=== PATIENT | female | born 1985 | race Caucasian/White ===

== ENCOUNTER 2017-04-04 21:00 | Emergency (ER) | payer OTHER, SELFPAY ==
[2017-04-04 21:17] VITALS: BP 107/67; PULSE 108; RESP 18; TEMP 36.4; O2SAT 98; BMI 24.6
--- NOTE | 2017-04-04 21:33 | HMH.EDURI ---
ED Disposition Clinical Impression: Flu Disposition: Home, Self-Care Condition on Discharge: Good Instructions: Influenza Additional Instructions: fluids and see pcp as needed Prescriptions: Oseltamivir Phosphate [Tamiflu 75mg Capsule] 75 mg PO BID #10 cap Referrals: Jose Younger MD [Primary Care Provider] - - Critical Care Critical Care Time: No Attestation: On , the high probability of a clinically significant, sudden or life threatening deterioration of the following system(s) required my full and direct attention, intervention and personal management. The time I documented below is in addition to time spent performing reported procedures but includes the following listed in this critical care notation. Medical Decision Making - Medical Records Medical records reviewed: Yes: I reviewed the patient's medical records. Vital Signs: 04/04/17 21:17 Temperature 97.6 F Temperature Source Oral Pulse Rate [Left Radial] 108 H Respiratory Rate 18 Blood Pressure [Right Arm] 107/67 Blood Pressure Mean [Right Arm] 80 Blood Pressure Source [Right Arm] Automatic Cuff Blood Pressure Position [Right Arm] Sitting 02 Sat by Pulse Oximetry 98 Oxygen Delivery Method Room Air - Lab Data Lab results reviewed: Yes: I reviewed the patient's lab results. Lab Results 04/04/17 : Influenza Type A Ag Positive A, Influenza Type B Ag Negative, Group A Strep Rapid Negative Orders (Tests/Meds): ORDERS Category Date Time Status Strep Screen Confirmation Stat Micro 04/04/17 Received - Yo Inquiry Pt receiving controlled substance: No URI/Sore Throat HPI - General Chief Complaint: Weakness Stated Complaint: SORE THROUT,COUGH Time Seen by Provider: 04/04/17 21:33 Mode of Arrival: Ambulatory Source of Information: Patient, Medical Record Limitations: No Limitations Description of Symptoms (Recalled from ER Triage Doc. 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 Complaint: fever, sore throat Onset (ago): day(s) Duration: constant Severity: moderate Relieving factors: OTC cold medicine Exacerbating factors: swallowing Description of mucous: clear Context: sick contacts Associated symptoms: fever - Related Data Home Medications Medication Instructions Recorded Confirmed acetaminophen 300 mg-codeine 30 mg 1 tab PO BIDP PRN tab 03/23/17 04/04/17 tablet nebivolol 5 mg tablet 5 mg PO QDAY 03/23/17 04/04/17 venlafaxine ER 150 mg 150 mg PO QDAY 03/23/17 04/04/17 capsule,extended release 24 hr buprenorphine 8 mg-naloxone 2 mg 2 each SUBLINGUAL DAILY each 03/29/17 04/04/17 sublingual film carbamazepine 200 mg tablet 200 mg PO Q12H 03/29/17 04/04/17 Dextroamphetamine/Amphetamine 10 mg PO BID 04/04/17 04/04/17 [Dextroamp-Amphetamin 10 mg Tab] Docusate Sodium [Colace] 100 mg PO QDAY 04/04/17 04/04/17 Gabapentin [Neurontin 800mg Tab] 800 mg PO TID 04/04/17 04/04/17 Polyethylene Glycol 3350 17 g PO QDAY 04/04/17 04/04/17 [Smoothlax] Previous Rx's Medication Instructions Recorded Oseltamivir Phosphate [Tamiflu 75 mg PO BID #10 cap 04/04/17 75mg Capsule] Allergies Allergy/AdvReac Type Severity Reaction Status Date / Time No Known Allergies Allergy Verified 04/04/17 21:34 [facility] History I have reviewed the patient's past medical history: Yes Laterality Cases: Bilateral: Tonsillectomy Other Surgeries: Yes: Other Amputation: No Fractures: No - *Social History Smoking Status: Current every day smoker Tobacco Type: cigarettes # Packs/Day (cigarettes): 1 #Yrs smoked (if former smoker): 12 Alcohol Intake: current Alcohol Intake Frequency:: holidays/special occasions only Substance Use Type: former substance user Occupational Status: employed Housing: apartment Household Members: family - Psychiatric History Expresses thoughts of harming self/othe
--- NOTE | 2017-04-04 21:36 | ED_ITS ---
ED Disposition Clinical Impression: Flu Disposition: Home, Self-Care Condition on Discharge: Good Instructions: Influenza Additional Instructions: fluids and see pcp as needed Prescriptions: Oseltamivir Phosphate [Tamiflu 75mg Capsule] 75 mg PO BID #10 cap Referrals: Jose Younger MD [Primary Care Provider] - - Critical Care Critical Care Time: No Attestation: On , the high probability of a clinically significant, sudden or life threatening deterioration of the following system(s) required my full and direct attention, intervention and personal management. The time I documented below is in addition to time spent performing reported procedures but includes the following listed in this critical care notation. Medical Decision Making - Medical Records Medical records reviewed: Yes: I reviewed the patient's medical records. Vital Signs: 04/04/17 21:17 Temperature 97.6 F Temperature Source Oral Pulse Rate [Left Radial] 108 H Respiratory Rate 18 Blood Pressure [Right Arm] 107/67 Blood Pressure Mean [Right Arm] 80 Blood Pressure Source [Right Arm] Automatic Cuff Blood Pressure Position [Right Arm] Sitting 02 Sat by Pulse Oximetry 98 Oxygen Delivery Method Room Air - Lab Data Lab results reviewed: Yes: I reviewed the patient's lab results. Lab Results 04/04/17 : Influenza Type A Ag Positive A, Influenza Type B Ag Negative, Group A Strep Rapid Negative Orders (Tests/Meds): ORDERS Category Date Time Status Strep Screen Confirmation Stat Micro 04/04/17 Received - Yo Inquiry Pt receiving controlled substance: No URI/Sore Throat HPI - General Chief Complaint: Weakness Stated Complaint: SORE THROUT,COUGH Time Seen by Provider: 04/04/17 21:33 Mode of Arrival: Ambulatory Source of Information: Patient, Medical Record Limitations: No Limitations Description of Symptoms (Recalled from ER Triage Doc. 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 Complaint: fever, sore throat Onset (ago): day(s) Duration: constant Severity: moderate Relieving factors: OTC cold medicine Exacerbating factors: swallowing Description of mucous: clear Context: sick contacts Associated symptoms: fever - Related Data Home Medications Medication Instructions Recorded Confirmed acetaminophen 300 mg-codeine 30 mg 1 tab PO BIDP PRN tab 03/23/17 04/04/17 tablet nebivolol 5 mg tablet 5 mg PO QDAY 03/23/17 04/04/17 venlafaxine ER 150 mg 150 mg PO QDAY 03/23/17 04/04/17 capsule,extended release 24 hr buprenorphine 8 mg-naloxone 2 mg 2 each SUBLINGUAL DAILY each 03/29/17 04/04/17 sublingual film carbamazepine 200 mg tablet 200 mg PO Q12H 03/29/17 04/04/17 Dextroamphetamine/Amphetamine 10 mg PO BID 04/04/17 04/04/17 [Dextroamp-Amphetamin 10 mg Tab] Docusate Sodium [Colace] 100 mg PO QDAY 04/04/17 04/04/17 Gabapentin [Neurontin 800mg Tab] 800 mg PO TID 04/04/17 04/04/17 Polyethylene Glycol 3350 17 g PO QDAY 04/04/17 04/04/17 [Smoothlax] Previous Rx's Medication Instructions Recorded Oseltamivir Phosphate [Tamiflu 75 mg PO BID #10 cap 04/04/17 75mg Capsule]
[2017-04-04 22:02] LABS: Strep Scrn Group A (Rapid) Negative (Negative)
== END 2017-04-04 22:53 | disposition home or self-care (01) ==
PROVIDERS: Emergency Provider Emergency Medicine; Family Provider Emergency Medicine; PCP Emergency Medicine
DX: J10.1 Influenza due to other identified influenza virus with other respiratory manifestations (principal); F17.210 Nicotine dependence, cigarettes, uncomplicated; Z79.899 Other long term (current) drug therapy
CPT/HCPCS: 87275; 87276; 87430; 99283

== ENCOUNTER 2017-04-10 12:49 | Emergency (ER) | payer OTHER, SELFPAY ==
[2017-04-10 12:50] VITALS: BP 118/79; PULSE 96; RESP 18; TEMP 36.9; O2SAT 99; BMI 24.2
[2017-04-10 14:00] LABS: Microscopic, Urine URINE MICROSCOPIC (MICROSCOPIC)
[2017-04-10 14:02] LABS: Appearance,Urine CLEAR (Clear); Bilirubin,Urine Negative (Negative); Blood, Urine Negative (Negative); Color,Urine YELLOW (Yellow); Glucose,Urine (UA) Negative (Negative); Ketones,Urine Negative (Negative); Leukocyte Esterase,Urine Negative (Negative); Nitrate,Urine Negative (Negative); Protein,Urine Negative (Negative); Urobilinogen,Urine 0.2 EU/dl (0.2)
--- NOTE | 2017-04-10 14:22 | HMH.EDGENADL ---
ED Disposition Clinical Impression: Acute viral pharyngitis, Tobacco use disorder, Influenza Disposition: Home, Self-Care Condition on Discharge: Good Prescriptions: Amoxicillin [Amoxicillin 500mg Cap] 500 mg PO TID #30 cap Referrals: Jose Younger MD [Primary Care Provider] - - Critical Care Critical Care Time: No Attestation: On 04/10/17, the high probability of a clinically significant, sudden or life threatening deterioration of the following system(s) required my full and direct attention, intervention and personal management. The time I documented below is in addition to time spent performing reported procedures but includes the following listed in this critical care notation. Medical Decision Making Vital Signs: 04/10/17 12:50 Temperature 98.4 F Temperature Source Oral Pulse Rate [Right Brachial] 96 H Respiratory Rate 18 Blood Pressure [Right Arm] 118/79 Blood Pressure Mean [Right Arm] 92 Blood Pressure Source [Right Arm] Automatic Cuff Blood Pressure Position [Right Arm] Sitting 02 Sat by Pulse Oximetry 99 Oxygen Delivery Method Room Air - Lab Data Lab Results 04/10/17 13:52: Urine Color Yellow, Urine Appearance Clear, Urine pH 8.0, Ur Specific [place] 1.010, Urine Protein Negative, Urine Glucose (UA) Negative, Urine Ketones Negative, Urine Blood Negative, Urine Nitrate Negative, Urine Bilirubin Negative, Urine Urobilinogen 0.2, Ur Leukocyte Esterase Negative Orders (Tests/Meds): ORDERS Category Date Time Status Rapid Strep Scrn Group A [Strep Scrn Group A (Rapid)] Lab 04/10/17 13:30 Received Stat UA [Urinalysis and Microscopic] Stat Lab 04/10/17 13:52 Results Upper Respiratory Panel, PCR Stat Lab 04/10/17 13:30 Received - Yo Inquiry Pt receiving controlled substance: No Yo was queried for this patient: No Medical Decision Making Narrative: The patient did have a negative strep screen test. She has a respiratory panel pending but she is on Tamiflu. She has acute pharyngitis most likely to be viral. She was able to start on antibiotics and follow-up with Dr. Younger in the morning on the final respiratory panel to screen report. General Adult HPI - General Chief complaint: PAIN Stated complaint: sore throat,sweating,fatique Mode of Arrival: Ambulatory Source of Information: Patient Limitations: No Limitations Description of Symptoms (Recalled from ER Triage Doc. by RN): Patient states she has had a sore throat for 3 days - History of Present Illness Onset (ago): day(s) (2 weeks) Severity scale (1-10): 5 Quality: sharp Consistency: intermittent Relieving factors: other (Salt and water.) Exacerbating factors: none (Following) Treatments prior to arrival: other (Tamiflu.) - Related Data Home Medications Medication Instructions Recorded Confirmed venlafaxine ER 150 mg 150 mg PO QDAY 03/23/17 04/10/17 capsule,extended release 24 hr buprenorphine 8 mg-naloxone 2 mg 2 each SUBLINGUAL DAILY each 03/29/17 04/10/17 sublingual film Topiramate [Topamax] 25 mg PO DAILY 04/10/17 04/10/17 carBAMazepine [Tegretol] 200 mg PO DAILY 04/10/17 04/10/17 Previous Rx's Medication Instructions Recorded Amoxicillin [Amoxicillin 500mg 500 mg PO TID #30 cap 04/10/17 Cap] Allergies Allergy/AdvReac Type Severity Reaction Status Date / Time No Known Allergies Allergy Verified 04/04/17 21:34 [facility] History I have reviewed the patient's past medical history: Yes Medical History: Denies:: Cancer, Diabetes Mellitus Type 1, Diabetes Mellitus Type 2, MRSA Laterality Cases: Bilateral: Tonsillectomy Other Surgeries: Yes: Other Amputation: No Fractures: No - *Social History Educational Level: Attended High School Smoking Status: Current every day smoker Tobacco Type: cigarettes # Packs/Day (cigarettes): 1 #Yrs smoked (if former smoker): 12 Alcohol Intake: current Alcohol Intake Frequency:: holidays/special occasions only
--- NOTE | 2017-04-10 14:25 | ED_ITS ---
ED Disposition Clinical Impression: Acute viral pharyngitis, Tobacco use disorder, Influenza Disposition: Home, Self-Care Condition on Discharge: Good Prescriptions: Amoxicillin [Amoxicillin 500mg Cap] 500 mg PO TID #30 cap Referrals: Jose Younger MD [Primary Care Provider] - - Critical Care Critical Care Time: No Attestation: On 04/10/17, the high probability of a clinically significant, sudden or life threatening deterioration of the following system(s) required my full and direct attention, intervention and personal management. The time I documented below is in addition to time spent performing reported procedures but includes the following listed in this critical care notation. Medical Decision Making Vital Signs: 04/10/17 12:50 Temperature 98.4 F Temperature Source Oral Pulse Rate [Right Brachial] 96 H Respiratory Rate 18 Blood Pressure [Right Arm] 118/79 Blood Pressure Mean [Right Arm] 92 Blood Pressure Source [Right Arm] Automatic Cuff Blood Pressure Position [Right Arm] Sitting 02 Sat by Pulse Oximetry 99 Oxygen Delivery Method Room Air - Lab Data Lab Results 04/10/17 13:52: Urine Color Yellow, Urine Appearance Clear, Urine pH 8.0, Ur Specific [place] 1.010, Urine Protein Negative, Urine Glucose (UA) Negative, Urine Ketones Negative, Urine Blood Negative, Urine Nitrate Negative, Urine Bilirubin Negative, Urine Urobilinogen 0.2, Ur Leukocyte Esterase Negative Orders (Tests/Meds): ORDERS Category Date Time Status Rapid Strep Scrn Group A [Strep Scrn Group A (Rapid)] Lab 04/10/17 13:30 Received Stat UA [Urinalysis and Microscopic] Stat Lab 04/10/17 13:52 Results Upper Respiratory Panel, PCR Stat Lab 04/10/17 13:30 Received - Yo Inquiry Pt receiving controlled substance: No Yo was queried for this patient: No Medical Decision Making Narrative: The patient did have a negative strep screen test. She has a respiratory panel pending but she is on Tamiflu. She has acute pharyngitis most likely to be viral. She was able to start on antibiotics and follow-up with Dr. Younger in the morning on the final respiratory panel to screen report. General Adult HPI - General Chief complaint: PAIN Stated complaint: sore throat,sweating,fatique Mode of Arrival: Ambulatory Source of Information: Patient Limitations: No Limitations Description of Symptoms (Recalled from ER Triage Doc. by RN): Patient states she has had a sore throat for 3 days - History of Present Illness Onset (ago): day(s) (2 weeks) Severity scale (1-10): 5 Quality: sharp Consistency: intermittent Relieving factors: other (Salt and water.) Exacerbating factors: none (Following) Treatments prior to arrival: other (Tamiflu.) - Related Data Home Medications Medication Instructions Recorded Confirmed venlafaxine ER 150 mg 150 mg PO QDAY 03/23/17 04/10/17 capsule,extended release 24 hr buprenorphine 8 mg-naloxone 2 mg 2 each SUBLINGUAL DAILY each 03/29/17 04/10/17 sublingual film Topiramate [Topamax] 25 mg PO DAILY 04/10/17 04/10/17 carBAMazepine [Tegretol] 200 mg PO DAILY 04/10/17 04/10/17 Previous Rx's Medication Instructions Recorded Amoxicillin [Amoxicillin 500mg 500 mg PO TID #30 cap 04/10/17 Cap] A
[2017-04-10 14:26] LABS: Strep Scrn Group A (Rapid) Negative (Negative)
[2017-04-10 14:36] LABS: Bacteria,Urine Trace /lpf; Squamous Epithelial Cell,Urine Occasional #/hpf (0-5); WBC,Urine Occasional #/hpf (0-3)
[2017-04-10 14:45] VITALS: BP 114/72; RESP 18; TEMP 36.7; O2SAT 99
== END 2017-04-10 14:45 | disposition home or self-care (01) ==
PROVIDERS: Emergency Provider Emergency Medicine; Family Provider Emergency Medicine; PCP Emergency Medicine
DX: J02.8 Acute pharyngitis due to other specified organisms (principal); J11.1 Influenza due to unidentified influenza virus with other respiratory manifestations; F17.210 Nicotine dependence, cigarettes, uncomplicated; Z79.899 Other long term (current) drug therapy
CPT/HCPCS: 81001; 87430; 99284

== ENCOUNTER → 2017-04-20 10:24 | Outpatient (CLI) | payer OTHER, SELFPAY ==
--- NOTE | 2017-04-20 10:27 | XR_ITS ---
XR knee LT 4V HISTORY: ITS.REASON: left knee pain ORDERING PHYSICIAN: Carlitos Lucero MD PATIENT AGE: 31 years COMPARISON: None FINDINGS: Weightbearing views are performed along with a Olivares view and sunrise view of the patella No fracture or dislocation. No lytic or blastic change. Normal mineralization. No significant arthritic changes evident. Nonspecific soft tissue calcification is present involving the medial aspect of the knee and could be due to small phlebolith No other significant findings IMPRESSION: Negative left knee
== END ==
PROVIDERS: PCP Emergency Medicine; Visit Provider Orthopaedic Surgery
DX: M25.562 Pain in left knee (principal)
CPT/HCPCS: 73564

== ENCOUNTER → 2017-05-03 09:39 | Outpatient (CLI) | payer OTHER, SELFPAY ==
--- NOTE | 2017-05-03 09:40 | MR_ITS ---
MR knee LT wo con HISTORY: Left knee pain, running injury, recurrent dislocation of the knee ORDERING PHYSICIAN: Carlitos Lucero MD PATIENT AGE: 31 years COMPARISON: 04/20/2017 radiograph TECHNIQUE: Standard multiplanar multiecho sequences are performed without contrast. FINDINGS: There is thickening of the anterior cruciate ligament with ill definition in its mid aspect cyst with severe sprain or partial tear. ACL course is as expected the PCL is intact. The collateral ligaments, patellar tendon, and quadriceps tendon are intact. There is an oblique tear involving the posterior horn of the medial meniscus with the tear exiting inferiorly at the tibial surface and along the posterior surface. This tear is nondisplaced. The lateral meniscus has an unremarkable appearance. The patellar cartilage is well preserved. The patellofemoral ligaments appear intact with no evidence of retinacular tear. There is some minimal lateral translation of the patella and there is shallow trochlear groove. No evidence of edema of the patella. There is a small knee joint effusion. IMPRESSION: 1. Oblique nondisplaced tear involves posterior horn of the lateral meniscus 2. Suspect at least partial tear of the ACL versus severe sprain 3. Shallow trochlear groove with minimal lateral subluxation of the patella 4. Knee joint effusion
== END ==
PROVIDERS: Family Provider Emergency Medicine; PCP Emergency Medicine; Visit Provider Orthopaedic Surgery
DX: M25.562 Pain in left knee (principal)
CPT/HCPCS: 73721

== ENCOUNTER → 2017-06-27 13:32 | Outpatient (CLI) | payer OTHER, SELFPAY ==
--- NOTE | 2017-06-27 13:35 | XR_ITS ---
XR foot wt bearing RT 3V COMPARISON: Left foot same date HISTORY: No history provided TECHNIQUE: AP lateral and oblique weightbearing views FINDINGS: The tarsal bones metatarsals and phalanges appear intact with no evidence of recent or old fracture. There is minimal soft tissue swelling over the first metatarsal head suggesting possibly early bunion formation. The plantar arch is normal. There is a moderate-sized os trigonum noted. There is a small bone fragment with smooth borders dorsal aspect of the naviculocuneiform articulation. IMPRESSION: Essentially negative right foot no question very minimal or early bunion
--- NOTE | 2017-06-27 13:35 | XR_ITS ---
XR foot wt bearing LT 3V COMPARISON: Right foot same date HISTORY: No history provided TECHNIQUE: AP lateral and oblique weightbearing views FINDINGS: The tarsal bones metatarsals and phalanges appear intact with no evidence of recent or old fracture. The plantar arch is normal. The soft tissues are normal. IMPRESSION: Negative left foot.
== END ==
PROVIDERS: Visit Provider Podiatrist
DX: M79.671 Pain in right foot (principal); M79.672 Pain in left foot
CPT/HCPCS: 73630

== ENCOUNTER 2017-06-29 09:00 | Outpatient (RCR) | payer OTHER, SELFPAY ==
--- NOTE | 2017-05-17 11:40 | HMH.PTOPEV ---
Rehab Outpatient Evaluation Rehab OP Evaluation Start: 05/17/17 11:30 Freq: Status: Active Protocol: Document 05/17/17 11:30 JENNIFER (Rec: 05/17/17 11:39 JENNIFER [id number]) Electronically Signed By Dimitrios Walls, PT 05/17/17 11:30 Outpatient Therapy Subjective History Subjective History Pt reports injury to L knee on 12/26/16 when she fell while running on gravel. MRI of L knee has revealed L ACL partial tear and L lateral meniscus tear. Pt reports global left knee pain and instability since initial injury. Chief Complaint Pain Stiff Swelling Gives out/Unstable Symptom Type Ache Throb Sharp Dull Symptoms Relieved By Rest/Positioning Symptoms Aggravated By Physical Activity Twisting Walking Prior Functional Limitations None Current Functional Limitations Squatting Recreation Activity Walking Stairs Symptom Description Constant but Variable Level of pain today (0-10) 4 Pain scale - at its best (0-10) 3 Pain scale - at its worst (0-10) 8 Hip/Knee Eval Gait Observation General Gait Pattern Observation Antalgic Gait Assistive Device Assistive Devices Straight Cane Palpation Tenderness left Knee Palpation Finding Tenderness Knee Palpation Overall Comment medial and lateral jt line, popiteal space (lateral) MMT right Hip Strength Reason Not Measured WFL Knee Strength Reason Not Measured WFL left Hip Flexion Strength Grade 5 Normal Hip Abduction Strength Grade 4- Good- Hip Adduction Strength Grade 4- Good- Hip Extension Strength Grade 4- Good- Hip External Rotation Strength Grade 4- Good- Hip Internal Rotation Strength Grade 4- Good- Knee Extension Strength Grade 4 Good Knee Flexion Strength Grade 4 Good ROM right Knee Flexion Active Range of Motion ( 0-150 degrees) left Knee Extension Active Range of Motion ( +5 degrees) Knee Flexion Active Range of Motion ( 5-135 degrees) Effusion joint effusion knee exam standard left Mid - Patellar Circumerential Measure ( 33 cm)
--- NOTE | 2017-06-23 13:49 | HMH.RHREAS ---
Rehab Reassessment Rehab OP Re-assessment Start: 06/23/17 13:39 Freq: Status: Active Protocol: Document 06/23/17 13:39 AMANDABERNICE (Rec: 06/23/17 13:48 AMANDABERNICE [id number]) Electronically Signed By Dimitrios Walls, PT 06/23/17 13:39 Rehab Re-assessment Subjective Subjective Pt reports 1/10 L knee pain at rest on VAS, and 8-9/10 L knee pain with episodes of ' buckling', and feels 60% better since I Eval Objective Objective Notes AROM: 3-142 L KNEE FLX MMT: L KNEE FLX 4+/5, L KNEE EXT 4+-5/5, L HIP FLX 4+/5, L HIP EXT/ADD/ABD 4-4+/5 TTP: L KNEE MEDIAL JT LINE 1/4 Assessment Progress Assessment Progressing as Expected Assessment Notes PT W/IMPROVED L LE STRENGTH, TTP, AND ROM Patient goals met STG'S 10/05 Goals Not Met STG'S 07/06 Plan Plan Pt to continue w/skilled PT to make further improvements with ROM, strength, and TTP Frequency of Therapy 1-2x/wk Duration of therapy 2-4wks Time and Billing Re-Eval Time 15 Re-Eval Billing Units 1 PHYSICIAN CERTIFICATION: I certify the specified therapy services for Estrella Almeida are required, authorized, and reviewed every 30 days.
== END 2017-06-29 09:01 | disposition home or self-care (01) ==
LOC: PT 09:00
PROVIDERS: Family Provider Emergency Medicine; PCP Emergency Medicine; Visit Provider Orthopaedic Surgery
DX: S83.512A Sprain of anterior cruciate ligament of left knee, initial encounter (principal); S83.242A Other tear of medial meniscus, current injury, left knee, initial encounter
CPT/HCPCS: 97010; 97014; 97016; 97110; 97164; G0283

== ENCOUNTER → 2017-07-10 13:21 | Outpatient (CLI) | payer OTHER, SELFPAY ==
[2017-07-10 13:48] LABS: Basophils # 0.1 K/mm3 (0-0.2); Basophils % 0.6 % (0.1-2.0); Eosinophils # 0.7 K/mm3 (0.0-0.4); Eosinophils % 7.7 % (0.1-12.0); Hematocrit 42.9 % (37.0-47.0); Hemoglobin 13.4 g/dL (12.2-16.2); Lymphocytes # 3.6 K/mm3 (0.7-4.5); Lymphocytes % 38.5 K/mm3 (10-50); Mean Corpuscular HGB Conc 31.1 g/dL (31.8-35.4); Mean Corpuscular Hemoglobin 26.7 pg (27.0-31.2); Mean Corpuscular Volume 85.7 fl (81-99); Mean Platelet Volume 8.2 fl (7.4-10.4); Monocytes # 0.4 K/mm3 (0.1-1.0); Monocytes % 4.2 % (1.7-9.3); Neutrophils # 4.6 K/mm3 (1.8-7.8); Neutrophils % 48.9 % (37.0-80.0); Platelet Count 251 K/mm3 (142-424); Red Cell Distribution Width 12.9 % (11.5-17.5); White Blood Count 9.4 K/mm3 (4.8-10.8)
[2017-07-10 14:45] LABS: Alanine Aminotransferase 67 U/L (12-78); Albumin Level 3.5 gm/dL (3.4-5.0); Alkaline Phosphatase 80 U/L (46-116); Aspartate Amino Transferase 44 U/L (15-37); Bilirubin,Total 0.3 mg/dL (0.2-1.0); Blood Urea Nitrogen 10 mg/dL (7-18); Calcium 8.8 mg/dL (8.5-10.1); Carbon Dioxide 29 mmol/L (21.0-32.0); Chloride 103 mmol/L (98-107); Creatinine,Serum 0.62 mg/dL (0.55-1.02); Estimated Glomerular Filt Rate 111 ml/min (>60); GFR (African American) 134 ML/MIN (>60); Globulin 3.5 gm/dl (1.3-3.2); Glucose 87 mg/dL (74-106); Sodium 139 mmol/L (136-145); Thyroid Stimulating Hormone 2.24 uIU/ml (0.358-3.740)
== END ==
PROVIDERS: PCP Emergency Medicine; Visit Provider Psychiatry & Neurology Psychiatry
DX: F33.0 Major depressive disorder, recurrent, mild (principal)
CPT/HCPCS: 36415; 80053; 84443; 85025

== ENCOUNTER → 2017-07-22 11:10 | Outpatient (CLI) | payer OTHER, SELFPAY ==
--- NOTE | 2017-07-22 11:27 | XR_ITS ---
XR chest 2V COMPARISON: None HISTORY: Smoking history TECHNIQUE: PA and lateral chest FINDINGS: The lung marte are well expanded and appear clear of infiltrate. The cardiac silhouette and vascularity are normal and is no pleural fluid. There is moderate diffuse dextroscoliotic curvature of the thoracic spine measuring 25 degrees. IMPRESSION: Nonacute chest findings
[2017-07-22 12:08] LABS: Anion Gap 13.1 mEq/L (5-15); Blood Urea Nitrogen 10 mg/dL (7-18); Carbon Dioxide 26 mmol/L (21.0-32.0); Chloride 105 mmol/L (98-107); Creatinine,Serum 0.67 mg/dL (0.55-1.02); Estimated Glomerular Filt Rate 101 ml/min (>60); GFR (African American) 123 ML/MIN (>60); Glucose 79 mg/dL (74-106); Potassium 4.1 mmoL/L (3.5-5.1); Sodium 140 mmol/L (136-145)
[2017-07-22 12:09] LABS: HCG,Quantitative 0 mIU/mL
[2017-07-22 12:13] LABS: Basophils # 0.1 K/mm3 (0-0.2); Basophils % 0.6 % (0.1-2.0); Eosinophils # 0.5 K/mm3 (0.0-0.4); Eosinophils % 6.9 % (0.1-12.0); Hematocrit 40.6 % (37.0-47.0); Hemoglobin 12.9 g/dL (12.2-16.2); Lymphocytes # 2.9 K/mm3 (0.7-4.5); Lymphocytes % 38.1 K/mm3 (10-50); Mean Corpuscular HGB Conc 31.8 g/dL (31.8-35.4); Mean Corpuscular Hemoglobin 26.7 pg (27.0-31.2); Mean Corpuscular Volume 83.8 fl (81-99); Mean Platelet Volume 7.8 fl (7.4-10.4); Monocytes # 0.4 K/mm3 (0.1-1.0); Monocytes % 4.9 % (1.7-9.3); Neutrophils # 3.8 K/mm3 (1.8-7.8); Neutrophils % 49.4 % (37.0-80.0); Platelet Count 294 K/mm3 (142-424); Red Blood Count 4.84 M/mm3 (4.20-5.40); Red Cell Distribution Width 12.6 % (11.5-17.5); White Blood Count 7.7 K/mm3 (4.8-10.8)
== END ==
PROVIDERS: Visit Provider Orthopaedic Surgery
DX: Z01.818 Encounter for other preprocedural examination (principal); S83.512D Sprain of anterior cruciate ligament of left knee, subsequent encounter; S83.282D Other tear of lateral meniscus, current injury, left knee, subsequent encounter; M25.562 Pain in left knee; G89.29 Other chronic pain
CPT/HCPCS: 36415; 71046; 80048; 84702; 85025

== ENCOUNTER 2017-09-06 14:30 | Outpatient (RCR) | payer OTHER, SELFPAY | END 2017-09-06 14:31 | disposition home or self-care (01) | LOC: PT 14:30 | PROVIDERS: Family Provider Emergency Medicine; PCP Emergency Medicine; Visit Provider Orthopaedic Surgery | DX: S83.512D Sprain of anterior cruciate ligament of left knee, subsequent encounter (principal); S83.242D Other tear of medial meniscus, current injury, left knee, subsequent encounter | CPT/HCPCS: 97014; 97016; 97110; 97112; 97116; 97140; 97163; 97164; G0283 ==

== ENCOUNTER → 2017-10-19 10:54 | Outpatient (CLI) | payer OTHER, SELFPAY ==
--- NOTE | 2017-10-19 10:57 | XR_ITS ---
XR knee LT 2V Ordering Physician: Carlitos Lucero MD Patient Age: 32 years: Female HISTORY: ITS.REASON: LEFT knee Meniscal repair. ACL tear TECHNIQUE: 3 views the left knee Plain films of the left knee 04/20/2017COMPARISON : FINDINGS Joint space maintained. . Normal relationships at the knee on this view. Joint effusion persists. The patient has had ACL repair. Small metallic fixation elements overlying the lateral aspect of the lateral femoral condyle base. Also a metallic fixation point seen at the inferior aspect of the tibial tunnel, at the anterior tibia just medial to the tibial tubercle. . Also on Lateral film is a tiny treva of density or calcification projected over the anterior joint space questionable doubtful significance but noted. IMPRESSION: Interval ACL repair.. Joint effusion. Other minor observations in text
== END ==
PROVIDERS: PCP Emergency Medicine; Visit Provider Orthopaedic Surgery
DX: Z47.89 Encounter for other orthopedic aftercare (principal)
CPT/HCPCS: 73560

== ENCOUNTER 2017-12-16 10:00 | Outpatient (RCR) | payer OTHER, SELFPAY ==
--- NOTE | 2017-12-01 13:51 | HMH.PTOPEV ---
PT Outpatient Evaluation Rehab PT Outpatient Evaluation Start: 12/01/17 13:40 Freq: Status: Active Protocol: Document 12/01/17 13:41 TERRA (Rec: 12/01/17 13:51 TERRA [id number]) Electronically Signed By Srinivas Sampson, PT 12/01/17 13:41 Outpatient Therapy Subjective History Subjective History Patient is a 32 year old female presenting to outpatient PT with reports of L knee pain S/P L ACL reconstruction and medial meniscus repair on 08/01/17. Initial injury occurred after a fall while running 12/2016. She has had 2 previous episodes of PT, one prior to surgery and the second for 1 month after surgery. Pt continues to demonstrate slight lack of extension ROM and hip/quad musculature deficits. Chief Complaint Pain Clicks Swelling Gives out/Unstable Symptom Type Ache Symptoms Relieved By Rest/Positioning Ice OTC Meds Symptoms Aggravated By Standing Physical Activity Walking Lifting Prior Functional Limitations None Current Functional Limitations Lifting Housework Standing Squatting Recreation Activity Walking Stairs Symptom Description Intermittent Level of pain today (0-10) 0 Pain scale - at its best (0-10) 0 Pain scale - at its worst (0-10) 7 Hip/Knee Eval Gait Observation General Gait Pattern Observation Antalgic Gait Palpation Tenderness left Knee Palpation Finding Tenderness Knee Palpation Overall Comment medial joint line. MMT right Hip Strength Reason Not Measured WFL Knee Strength Reason Not Measured WFL left Hip Flexion Strength Grade 4 Good Hip Abduction Strength Grade 4- Good- Hip Extension Strength Grade 4 Good Hip External Rotation Strength Grade 4- Good- Hip Internal Rotation Strength Grade 4- Good- Knee Extension Strength Grade 4- Good- Knee Flexion Strength Grade 4 Good ROM right Hip ROM Reason Not Measured
== END 2017-12-16 10:01 | disposition home or self-care (01) ==
LOC: PT 10:00
PROVIDERS: Family Provider Emergency Medicine; PCP Emergency Medicine; Visit Provider Orthopaedic Surgery
DX: S83.242A Other tear of medial meniscus, current injury, left knee, initial encounter (principal)
CPT/HCPCS: 97010; 97014; 97110; 97163; G0283

== ENCOUNTER → 2017-12-16 16:33 | Outpatient (REF) | payer OTHER, SELFPAY ==
[2017-12-16 17:11] LABS: Alanine Aminotransferase 36 U/L (12-78); Albumin Level 3.8 gm/dL (3.4-5.0); Albumin/Globulin Ratio 1.1 (1.1-1.8); Alkaline Phosphatase 85 U/L (46-116); Aspartate Amino Transferase 32 U/L (15-37); Bilirubin,Total 0.2 mg/dL (0.2-1.0); Blood Urea Nitrogen 7 mg/dL (7-18); Carbon Dioxide 29 mmol/L (21.0-32.0); Chloride 108 mmol/L (98-107); Creatinine,Serum 0.79 mg/dL (0.55-1.02); Estimated Glomerular Filt Rate 83 ml/min (>60); GFR (African American) 101 ML/MIN (>60); Globulin 3.4 gm/dl (1.3-3.2); Glucose 81 mg/dL (74-106); Sodium 145 mmol/L (136-145); T4 (Thyroxine) 5.7 ug/dl (4.7-13.3); Thyroid Stimulating Hormone 1.32 uIU/ml (0.358-3.740); Total Protein,Serum 7.2 gm/dL (6.4-8.2)
[2017-12-16 18:45] LABS: Erythrocyte Sedimentation Rate 38 mm/hr (0-20)
[2017-12-16 18:50] LABS: Basophils # 0.1 K/mm3 (0-0.2); Basophils % 0.7 % (0.1-2.0); Eosinophils # 0.5 K/mm3 (0.0-0.4); Eosinophils % 5.2 % (0.1-12.0); Hematocrit 42.2 % (37.0-47.0); Hemoglobin 12.9 g/dL (12.2-16.2); Lymphocytes # 4.1 K/mm3 (0.7-4.5); Lymphocytes % 45.2 K/mm3 (10-50); Mean Corpuscular HGB Conc 30.7 g/dL (31.8-35.4); Mean Corpuscular Hemoglobin 26.4 pg (27.0-31.2); Mean Platelet Volume 8.4 fl (7.4-10.4); Monocytes # 0.4 K/mm3 (0.1-1.0); Monocytes % 4.6 % (1.7-9.3); Neutrophils % 44.3 % (37.0-80.0); Platelet Count 281 K/mm3 (142-424); Red Blood Count 4.91 M/mm3 (4.20-5.40); Red Cell Distribution Width 13.4 % (11.5-17.5); White Blood Count 9.1 K/mm3 (4.8-10.8)
[2017-12-19 12:57] LABS: Vitamin D 25 Hydroxy 27.5 ng/mL (30.0-100.0)
== END ==
LOC: LAB 16:33
PROVIDERS: Visit Provider Emergency Medicine
DX: R53.83 Other fatigue (principal)
CPT/HCPCS: 80053; 82652; 84436; 84443; 85025; 85651

== ENCOUNTER → 2017-12-19 12:14 | Outpatient (CLI) | payer OTHER, SELFPAY | PROVIDERS: Visit Provider Emergency Medicine | DX: R10.9 Unspecified abdominal pain (principal) ==

== ENCOUNTER → 2018-04-20 15:38 | Outpatient (CLI) | payer OTHER, SELFPAY ==
--- NOTE | 2018-04-20 15:45 | XR_ITS ---
XR chest 2V HISTORY: Cough, smoker ITS.REASON: Smoker, f/h lung CA ORDERING PHYSICIAN: CECILIA Guzman PATIENT AGE: 32 years COMPARISON: 07/22/2017 FINDINGS: The cardiomediastinal silhouette and pulmonary vascularity are within normal limits. The lungs are clear without infiltrates, suspicious nodules, or pleural effusions. Mild dextroscoliosis of lower thoracic spine. IMPRESSION: No change with no acute finding
== END ==
PROVIDERS: PCP Physician Assistant; Visit Provider Physician Assistant
DX: Z80.1 Family history of malignant neoplasm of trachea, bronchus and lung (principal); Z72.0 Tobacco use
CPT/HCPCS: 71046

== ENCOUNTER → 2018-04-27 14:09 | Outpatient (CLI) | payer OTHER, SELFPAY | PROVIDERS: PCP Physician Assistant; Visit Provider Physician Assistant | DX: Z72.0 Tobacco use (principal) | CPT/HCPCS: 94060; 94640 ==

== ENCOUNTER → 2019-01-24 13:41 | Outpatient (CLI) | payer OTHER, SELFPAY ==
--- NOTE | 2019-01-24 13:53 | XR_ITS ---
PROCEDURE: XR SHOULDER RT MIN 2V CLINICAL INDICATION: right shoulder pain COMPARISON: No exams were available for comparison FINDINGS: No fracture, dislocation, lytic change, or blastic change evident. No significant degenerative change IMPRESSION: No acute findings. Dictated by: Sp Lindo MD 01/24/2019 14:11 Electronically signed by Sp Lindo MD in [place] 01/24/2019 14:11
== END ==
PROVIDERS: PCP Emergency Medicine; Visit Provider Orthopaedic Surgery
DX: M25.511 Pain in right shoulder (principal)
CPT/HCPCS: 73030

== ENCOUNTER → 2019-08-29 18:20 | Outpatient (CLI) | payer OTHER, SELFPAY ==
[2019-08-29 19:32] LABS: Basophils # 0.1 K/mm3 (0-0.2); Basophils % 0.8 % (0.1-2.0); Eosinophils # 0.6 K/mm3 (0.0-0.4); Eosinophils % 4.7 % (0.1-12.0); Hematocrit 43.6 % (37.0-47.0); Lymphocytes # 3.8 K/mm3 (0.7-4.5); Lymphocytes % 31.2 % (10-50); Mean Corpuscular HGB Conc 32.2 g/dL (31.8-35.4); Mean Corpuscular Hemoglobin 27.8 pg (27.0-31.2); Mean Corpuscular Volume 86.4 fl (81-99); Mean Platelet Volume 8.7 fl (7.4-10.4); Monocytes # 0.6 K/mm3 (0.1-1.0); Monocytes % 4.6 % (1.7-9.3); Neutrophils # 7.2 K/mm3 (1.8-7.8); Neutrophils % 58.8 % (37.0-80.0); Platelet Count 338 K/mm3 (142-424); Red Blood Count 5.05 M/mm3 (4.20-5.40); Red Cell Distribution Width 13.8 % (11.5-17.5); White Blood Count 12.3 K/mm3 (4.8-10.8)
[2019-08-29 20:40] LABS: Chloride 105 mmol/L (98-107); Potassium 4.1 mmoL/L (3.5-5.1); Sodium 139 mmol/L (136-145)
[2019-08-29 20:42] LABS: Alanine Aminotransferase 34 U/L (12-78); Alkaline Phosphatase 75 U/L (38-126); Aspartate Amino Transferase 46 U/L (14-36); Bilirubin,Total 0.8 mg/dl (0.2-1.3); Blood Urea Nitrogen 10 mg/dl (7-17); Estimated Glomerular Filt Rate 95 ml/min (>60); GFR (African American) 115 ML/MIN (>60)
[2019-08-29 20:43] LABS: Albumin Level 4.3 g/dl (3.5-5.0); Albumin/Globulin Ratio 1.4 (1.1-1.8); Anion Gap 12.1 mEq/L (5-15); Calcium 9.4 mg/dl (8.4-10.2); Carbon Dioxide 26 mmol/L (22.0-30.0); Cholesterol 176 mg/dl (140-200); Glucose 106 mg/dl (74-100); HDL Cholesterol 44 mg/dl (40-60); Total Protein,Serum 7.3 g/dl (6.3-8.2); Triglycerides 198 mg/dl (30-150); VLDL Cholesterol 40 mg/dL (0-40)
[2019-08-29 20:59] LABS: T4 (Thyroxine) 8.1 ug/dl (5.53-11.0)
[2019-08-29 21:38] LABS: Hemoglobin A1C 5.3 % (4.0-6.0)
[2019-08-29 22:03] LABS: Thyroid Stimulating Hormone 3.26 uIU/mL (0.465-4.68)
[2019-08-31 12:05] LABS: Vitamin D 25 Hydroxy 22.7 ng/mL (30.0-100.0)
== END ==
PROVIDERS: Visit Provider Nurse Practitioner Family
DX: Z01.89 Encounter for other specified special examinations (principal); M54.9 Dorsalgia, unspecified; G89.29 Other chronic pain; Z79.899 Other long term (current) drug therapy
CPT/HCPCS: 80053; 80061; 82652; 83036; 84436; 84443; 85025

== ENCOUNTER 2021-10-02 13:10 | Outpatient (CLI) | payer OTHER, SELFPAY ==
[2021-10-02 13:13] VITALS: BP 118/80; PULSE 73; RESP 18; TEMP 36.7; O2SAT 99; BMI 25.4
[2021-10-02 13:30] LABS: Microscopic, Urine URINE MICROSCOPIC (MICROSCOPIC)
[2021-10-02 13:37] LABS: Appearance,Urine SL CLOUDY (Clear); Bilirubin,Urine Negative (Negative); Blood, Urine Negative (Negative); Color,Urine YELLOW (Yellow); Glucose,Urine (UA) Negative (Negative); Ketones,Urine Negative (Negative); Leukocyte Esterase,Urine Negative (Negative); Nitrate,Urine Negative (Negative); PH,Urine 6.5 (5.0-8.5); Protein,Urine TRACE (Negative); Specific Gravity, Urine 1.025 (1.005-1.030)
[2021-10-02 13:54] LABS: Bacteria,Urine 1+ /lpf; Mucus,Urine Trace /lpf
[2021-10-02 14:22] LABS: Amphetamine/Metha Screen,Urine Negative ng/ml (<1000)
[2021-10-02 14:23] LABS: Barbiturates Screen,Urine Negative ng/ml (<200); Benzodiazepines Screen,Urine Negative ng/ml (<200)
[2021-10-02 14:24] LABS: Cannabinoid Screen,Urine Negative ng/ml (<50); Cocaine Screen,Urine Negative ng/ml (<300)
[2021-10-02 14:25] LABS: Methadone Screen,Urine Negative ng/ml (<300)
[2021-10-02 14:26] LABS: Opiate Screen,Urine Negative ng/ml (<300)
[2021-10-02 14:27] LABS: Phencyclidine Screen,Urine Negative ng/ml (<25)
== END 2021-10-02 15:00 | disposition home or self-care (01) ==
LOC: OBOUT 13:11 → OB 13:13
PROVIDERS: PCP Emergency Medicine; Visit Provider Obstetrics & Gynecology
DX: O26.893 Other specified pregnancy related conditions, third trimester (principal); Z3A.39 39 weeks gestation of pregnancy
CPT/HCPCS: 59025; 80305; 81001; G0463